=== PATIENT | male | born 1980 | race Caucasian/White ===

== ENCOUNTER → 2021-01-29 13:39 | Outpatient (CLI) | payer BC, SELFPAY ==
--- NOTE | ~2021-01-29 | CT_ITS ---
EXAMINATION: CT abdomen pelvis w con INDICATION: Abdominal pain TECHNIQUE: Computed tomographic images of the abdomen and pelvis were obtained after the administrati on of 100 cc of Omnipaque 350 intravenous contrast. The dose-length product (DLP) was 1128.14 mGy-cm. Automated exposure control and iterative reconstruction technique were employed. COMPARISON: None available FINDINGS: Minimal dependent atelectasis is present in the lung bases. The heart size is normal. The l iver is diffusely low in attenuation when compared with the spleen, consistent with hepatic steatosis . The spleen, pancreas, gallbladder, and adrenal glands are normal. The kidneys are unremarkable. No pathologically enlarged abdominal or pelvic lymph nodes are identified. There is no free intraperiton eal gas or evidence of bowel obstruction. There is a fat-containing umbilical hernia. A soft tissue l ipoma is noted in the right lateral chest wall. IMPRESSION: 1. No CT correlate for the patient's symptoms. Reviewed, dictated and finalized at location B.
[2021-01-29 14:05] LABS: Estimated Glomerular Filt Rate > 60
== END ==
PROVIDERS: PCP Internal Medicine; Visit Provider Internal Medicine
DX: R10.9 Unspecified abdominal pain (principal)
CPT/HCPCS: 74177; Q9967

== ENCOUNTER → 2022-11-01 10:11 | Outpatient (CLI) | payer BC, SELFPAY ==
--- NOTE | ~2022-11-01 | US_ITS ---
EXAMINATION: US soft tissue abdomen DATE: 11/01/2022 10:25 INDICATION: Hard nodule in the mid abdomen TECHNIQUE: Multiple grayscale and Doppler ultrasound images of the region of concern in the midline u pper abdomen were obtained. COMPARISON: CT dated 01/29/2021 FINDINGS: No abnormal masses or fluid collections identified in the region of concern. There is prominent anter iorly directed xiphoid process as also seen on the prior CT which likely accounts for the palpable ab normality of concern. IMPRESSION: 1. Anteriorly directed posteriorly xiphoid process at the palpable abnormality of concern. No abnorma l masses. Reviewed, dictated and finalized at location A. [employer] IMPRESSION: 1. Anteriorly directed posteriorly xiphoid process at the palpable abnormality of concern. No abnormal masses.
== END ==
PROVIDERS: PCP Family Medicine; Visit Provider Family Medicine
DX: R19.00 Intra-abdominal and pelvic swelling, mass and lump, unspecified site (principal)
CPT/HCPCS: 76705

== ENCOUNTER 2024-09-03 15:15 | Outpatient (CLI) | payer BC, SELFPAY ==
[2024-09-03 15:28] LABS: Basophils Absolute Auto 0.1 K/mm3 (0.0-0.1); Basophils Percent Auto 0.7 % (0.2-1.2); Eosinophils Absolute Auto 0.2 K/mm3 (0-0.3); Eosinophils Percent Auto 1.5 % (0-4.4); Hematocrit 54.5 % (42.0-52.0); Hemoglobin 18.5 g/dL (14.0-18.0); Immature Granulocyte Absolute 0.06 K/mm3 (0.00-0.031); Immature Granulocyte Percent A 0.5 % (0-0.5); Lymphocytes Absolute Auto 3.95 K/mm3 (0.9-3.2); Lymphocytes Percent Auto 30.4 % (18.3-44.2); Mean Corpuscular HGB Conc 33.9 g/dl (32-36); Mean Corpuscular Hemoglobin 29.4 pg (26-34); Mean Corpuscular Volume 86.5 fl (80-100); Monocytes Absolute Auto 0.9 K/mm3 (0.1-0.6); Monocytes Percent Auto 7.1 % (2.6-8.5); Neutrophils Absolute Auto 7.8 K/mm3 (1.3-6.7); Neutrophils Percent Auto 59.8 % (45.5-73.1); Platelet Count Result 237 k/mm3 (150-375); Red Cell Distribution Width 14.9 % (11.5-14.5)
[2024-09-03 16:35] LABS: Alanine Aminotransferase 27 U/L (6-50); Albumin Level 4.2 g/dL (3.5-5.1); Alkaline Phosphatase 71 U/L (38-126); Anion Gap 6 mmol/L (4-12); Aspartate Amino Transferase 78 U/L (17-59); Bilirubin,Total 0.6 mg/dL (0.2-1.3); Blood Urea Nitrogen 12 mg/dL (9-20); CRP < 0.5 mg/dL (<1.0); Calcium 9.9 mg/dL (8.4-10.2); Carbon Dioxide 32 mmol/L (22-30); Chloride 101 mmol/L (98-107); Estimated Glomerular Filt Rate > 60; Glucose 137 mg/dL (65-110); Potassium 4.1 mmol/L (3.4-5.0); Sodium 139 mmol/L (137-145)
[2024-09-03 16:49] LABS: Erythrocyte Sedimentation Rate 2 mm/hr (0-20)
== END 2024-09-03 15:16 | disposition home or self-care (01) ==
LOC: ANHLAB 15:16
PROVIDERS: PCP Nurse Practitioner Family; Visit Provider Internal Medicine Hematology & Oncology
DX: D75.1 Secondary polycythemia (principal)
CPT/HCPCS: 36415; 80053; 82668; 85025; 85652; 86140